=== PATIENT | male | born 1960 | race Caucasian/White ===

== ENCOUNTER 2017-02-01 06:20 | Emergency (ER) | payer OTHER ==
[~2017-02-01] VITALS: Ht 160 cm; Wt 72.6 kg
[2017-02-01 06:41] LABS: ABSOLUTE BASOPHIL COUNT 0.1 /CUMM (0.0-0.2); ABSOLUTE EOSINOPHIL COUNT 0.2 /CUMM (0.0-0.7); ABSOLUTE GRANULOCYTE CT 2.8 /CUMM (1.4-6.5); ABSOLUTE LYMPH COUNT 2.3 /CUMM (1.2-3.4); ABSOLUTE MONOCYTE COUNT 0.3 /CUMM (0.10-0.60); BASOPHIL % 1.9 % (0.0-2.0); EOSINOPHIL % 2.8 % (0-5); GRANULOCYTE % 48.9 % (42.2-75.2); HEMATOCRIT 45.6 % (42-52); MEAN CORPUSCULAR VOLUME 91.2 FL (80.0-94.0); MEAN PLATELET VOLUME 7.2 FL (7.4-10.4); PLATELET COUNT 349 /CUMM (130-400); WHITE BLOOD CELL COUNT 5.7 /CUMM (4.8-10.8)
--- NOTE | 2017-02-01 07:20 | ED CARDIAC/CP/PALPITATIONS ---
History of Present Illness General Chief Complaint: Chest Pain Stated Complaint: " CP SINCE 3AM" Source: patient Exam Limitations: no limitations Vital Signs & Intake/Output Vital Signs & Intake/Output ED Intake and Output 02/02 0000 02/01 1200 Intake Total Output Total Balance Patient 160 lb Weight Allergies Coded Allergies: NO KNOWN ALLERGIES (08/07/13) Reconcile Medications Ibuprofen 600 MG TABLET 1 TAB PO Q6P PRN PAIN with food Ranitidine HCl (Zantac) 300 MG TABLET 1 TAB PO QPM ACID REFLUX Triage Note: PT FROM HOME C/O CP. PT STATES FOR THE PAST 3 MONTHS PT HAS HAD INTERMITTENT CP THAT FEELS LIKE PRESSURE ON CHEST. PT STATES DOES NOT RADIATE TO ARMS OR JAW. PT DENIES FISCHER/DIZZINESS.N.V.D. PT STATES AROUND 0300 THE CP HAS BEEN CONSTANT. PT TO 2. Triage Nurses Notes Reviewed? yes Onset: Abrupt Duration: week(s):, gone now, intermittent Quality/Severity: mild, moderate, sharp, stabbing Location: left chest and left parasternal Radiation: no radiation HPI: PT PRESENTS FOR EVAL OF CP THAT BEGAN A 3AM. PT HAS HAD INTERMITTENT CP EPISODES FOR ABOUT 2 WEEKS. NO PAIN AT PRESENT. Past History Travel History Traveled to [place] past 21 day No Medical History Any Pertinent Medical History? see below for history Neurological: NONE EENT: NONE Cardiovascular: NONE Respiratory: NONE Gastrointestinal: NONE Hepatic: NONE Renal: NONE Musculoskeletal: NONE Psychiatric: NONE Endocrine: NONE Blood Disorders: NONE Cancer(s): NONE CORSET MAKER/Reproductive: NONE Surgical History Surgical History: non-contributory Psychosocial History What is your primary language Czech Tobacco Use: Never used ETOH Use: heavy use Illicit Drug Use: denies illicit drug use Family History Hx Contributory? No Review of Systems Review of Systems Constitutional: Reports: no symptoms. EENTM: Reports: no symptoms. Respiratory: Reports: no symptoms. Cardiovascular: Reports: chest pain. GI: Reports: no symptoms. Genitourinary: Reports: no symptoms. Musculoskeletal: Reports: no symptoms. Skin: Reports: no symptoms. Neurological/Psychological: Reports: no symptoms. Hematologic/Endocrine: Reports: no symptoms. Immunologic/Allergic: Reports: no symptoms. All Other Systems: Reviewed and Negative Physical Exam Physical Exam Cardiovascular: see below Comments: gen: wn, wd, no acute resp distress head: nc/at eyes: normal inspection ears: normal inspection nose: normal inspection throat/mouth: moist mucosa neck: supple, from, no goiter heart: rrr, no mrg lungs: cta bilaterally with normal air entry chest: nt abd: soft, nd, normal bowel sounds, nontender back: normal range of motion ext: normal range of motion, no cyanosis, clubbing or edema skin: warm and dry circulatory: normal radial pulses neuro: cn 2-12 grossly intact, speech clear psych: calm, cooperative, no apparent delusion, hallucinations or pressured speech Core Measures ACS in differential dx? No Severe Sepsis Present: No Septic Shock Present: No Progress Differential Diagnosis: AMI, musculoskeletal pain, pericarditis, PUD/GERD, unstable angina Plan of Care: Orders Procedure Date/time Status TROPONIN LEVEL 02/01 1030 Complete EKG 02/01 103 Active TROPONIN LEVEL 02/01 631 Complete D-DIMER 02/01 631 Complete COMPREHENSIVE METABOLIC PANEL 02/01 631 Complete CBC WITHOUT DIFFERENTIAL 02/01 631 Complete EKG 02/01 621 Active Laboratory Tests 02/01/17 1012: Troponin I < 0.01 02/01/17 0635: Anion Gap 9, Estimated GFR > 60, BUN/Creatinine Ratio 14.5, Glucose 107 H, Calcium 10.0, Total Bilirubin 0.8, AST 27, ALT 39, Alkaline Phosphatase 59, Troponin I < 0.01, Total Protein 7.8, Albumin 4.6, Globulin 3.2, Albumin/ Globulin Ratio 1.4, D-Dimer < 200, CBC w Diff NO MAN DIFF REQ, RBC 5.00, MCV 91.2, MCH 31.0, RDW 13.0, MPV 7.2 L, Gran % 48.9, Lymphocytes % 40.4, Monocytes % 6.0, Eosinophils % 2.8, Basophils % 1.9, Absolute Granulocytes 2.8, Absolute Lymphocytes 2.3, Absolute Monocytes 0.3, Absolute Eosinophils 0.2, Absolute Basophils 0.1, PUBS MCHC 34.0 Diagnostic Imaging: Discussed w/RAD: Radiology Read. CXR Impression: PATIENT: JAY ANDRADE PRESENT AGE: 56 PATIENT ACCOUNT NO: [id number] : 58 LOCATION: [facility] ORDERING PHYSICIAN: TAMARA FRIAS MD SERVICE DATE: 03/06/17-0631 EXAM TYPE: RAD - XRY- PORTABLE CHEST XRAY EXAMINATION: XR PORTABLE CHEST CLINICAL INFORMATION: Chest pain. COMPARISON: None TECHNIQUE: Portable AP view of the chest was obtained. FINDINGS: No significant abnormality is noted involving the heart, lungs, mediastinum, bony thorax or soft tissues. IMPRESSION: Normal portable chest radiograph. DICTATED BY: NINOSKA GUTIERREZ MD DATE/TIME DICTATED:02/01/17712 HOME HEALTH CARE CASE MANAGER:MARIN DATE/TIME TRANSCRIBED:02/01/17712 CONFIDENTIAL, DO NOT COPY WITHOUT APPROPRIATE AUTHORIZATION. <Electronically signed in Other Vendor System> SIGNED BY: NINOSKA GUTIERREZ MD 02/01/17717 Initial ED EKG: NSR, rate (81), no ST T wave changes Comments: 02/01/2017 8:40:17 AM jay remains asymptomatic. Updated on test results. 02/01/2017 9:40:06 AM patient's case discussed with Dr. Lubin who agrees with the repeat EKG troponin and follow-up in his office. 02/01/2017 11:46:42 AM I have updated Omer on his test results. He remains asymptomatic. He is agreeable to trying an antacid for the possibility that his chest pain is due to acid reflux or some gastritis. doubt mi or unstable angina given hx, lack of ekg changes and nl troponins. Departure Departure Disposition: HOME OR SELF CARE Condition: Stable Clinical Impression Primary Impression: Chest pain Qualifiers: Chest pain type: other chest pain Qualified Code: R07.89 - Other chest pain Referrals: JERRY HELMS MD (PCP/Family) Additional Instructions: Rest, no exertion or heavy lifting. Contact Dr. Lubin's office today to arrange for follow-up appointment this week. Notify your primary care doctor of this emergency department visit and treatment plan. Return if any concerns or sudden worsening. Thank you for choosing the [facility] Emergency Department for your care. It was a pleasure to serve you today. Howard Cantu M.D. [facility] Departure Forms: Customer Survey General Discharge Information Prescriptions: Current Visit Scripts Ranitidine HCl (Zantac) 1 TAB PO QPM #15 TAB Ibuprofen 1 TAB PO Q6P PRN PAIN #20 TAB with food Critical Care Note Critical Care Note Critical Care Time: non-applicable
[2017-02-01] MEDS ORDERED: IBUPROFEN600 M1 PO (11:50)
[2017-02-01] MEDS ORDERED: ZANTAC300 MG PO (11:50)
[2017-02-01 11:58] VITALS: BP 140/72
== END 2017-02-01 11:59 ==
LOC: ERH 06:20
PROVIDERS: Pediatrics
DX: R07.9 Chest pain, unspecified (principal)
CPT/HCPCS: 93005; 93010